=== PATIENT | female | born 1940 | race Asian ===

== ENCOUNTER 2021-12-14 20:15 | Inpatient (IN) | payer MEDICARE ==
[~2021-12-14] VITALS: Ht 144.8 cm; Wt 46.1 kg
[2021-12-14 20:49] LABS: BASOPHILS ABSOLUTE AUTO 0.01 K/mm3 (0.00-0.23); BASOPHILS PERCENT AUTO 0 % (0-2); EOSINOPHILS ABSOLUTE AUTO 0.02 K/mm3 (0.00-0.68); EOSINOPHILS PERCENT AUTO 0 % (0-6); Hematocrit 37.9 % (33.0-51.0); IMMATURE GRAN ABSOLUTE AUTO 0.02 K/mm3 (0.00-0.10); IMMATURE GRAN PERCENT AUTO 0 % (0-1); LYMPHOCYTES ABSOLUTE AUTO 0.39 K/mm3 (0.84-5.20); LYMPHOCYTES PERCENT AUTO 5 % (21-46); MONOCYTES PERCENT AUTO 6 % (4-13); Mean Corpuscular HGB 30.1 pg (26.0-34.0); Mean Corpuscular HGB Conc 34.3 g/dL (31.5-36.5); Mean Corpuscular Volume 88 fL (80-100); Mean Platelet Volume 8.7 fL (9.1-12.4); NEUTROPHILS ABSOLUTE AUTO 7.71 K/mm3 (1.96-9.15); NEUTROPHILS PERCENT AUTO 89 % (41-73); Platelet Count 288 K/mm3 (150-400); RDW Coefficient Variation 11.9 % (11.7-14.2); RDW Standard Deviation 38.4 fL (35.1-46.3); Red Blood Cell Count 4.32 M/mm3 (3.80-5.20); White Blood Cell Count 8.65 K/mm3 (4.00-11.30)
[2021-12-14 21:11] LABS: Albumin/Globulin Ratio 0.7 (0.8-1.8); Bilirubin, Total 1.9 mg/dL (0.1-1.0); Calcium, Blood 8.8 mg/dL (8.5-10.1); Creatinine, Blood 0.95 mg/dL (0.40-1.00); Globulin, Blood 4.1 g/dL (2.2-4.0); Potassium, Blood 3.6 mmol/L (3.5-5.5); Total Protein, Blood 7.1 g/dL (6.4-8.2)
[2021-12-15 00:27] LABS: Source, Urine Voided
[2021-12-15 00:34] LABS: Appearance, Urine Clear (Clear); Blood, Urine 1+ (Neg); Color, Urine Yellow (P-Yellow); Glucose Qualitative, Urine Neg (Neg); Ketones, Urine 4+ (Neg); Leukocyte Esterase, Urine 1+ (Neg); Nitrite, Urine Neg (Neg); Protein, Urine 2+ (Neg); Urobilinogen, Urine 2+ (Normal)
[2021-12-15 00:46] LABS: Bilirubin, Urine 1+ (Neg)
[2021-12-15 00:50] LABS: Bacteria Few /hpf; Red Blood Cells, Urine 0-2 /hpf (0-2); Squamous Epithelial Cells Few /hpf (Few); White Blood Cells, Urine 0-2 /hpf (0-5)
[2021-12-15 05:05] LABS: Hematocrit 41.3 % (33.0-51.0); Hemoglobin 13.8 g/dL (11.5-16.0); Mean Corpuscular HGB 29.9 pg (26.0-34.0); Mean Corpuscular HGB Conc 33.4 g/dL (31.5-36.5); Mean Corpuscular Volume 89 fL (80-100); Mean Platelet Volume 8.7 fL (9.1-12.4); Platelet Count 295 K/mm3 (150-400); RDW Coefficient Variation 11.9 % (11.7-14.2); RDW Standard Deviation 38.6 fL (35.1-46.3); Red Blood Cell Count 4.62 M/mm3 (3.80-5.20); White Blood Cell Count 14.37 K/mm3 (4.00-11.30)
[2021-12-15 05:29] LABS: BAND PERCENT MAN 7 % (0-8); BASOPHILS PERCENT MAN 0 % (0-2); EOSINOPHILS PERCENT MAN 0 % (0-6); LYMPHOCYTES ABSOLUTE MAN 0.28 K/mm3 (0.84-5.20); LYMPHOCYTES PERCENT MAN 2 % (21-46); METAMYELOCYTE ABSOLUTE MAN 0.14 K/mm3 (0.00-0.00); METAMYELOCYTE PERCENT MAN 1 % (0-0); MONOCYTES ABSOLUTE MAN 0.43 K/mm3 (0.16-1.47); MONOCYTES PERCENT MAN 3 % (4-13); SEG NEUTROPHILS PERCENT MAN 87 % (41-73); TOTAL CELLS COUNTED 100
[2021-12-15 05:45] LABS: Albumin/Globulin Ratio 0.7 (0.8-1.8); Bilirubin, Total 2.9 mg/dL (0.1-1.0); Bun/Creatinine Ratio 21.7 (12.0-20.0); Calcium, Blood 8.4 mg/dL (8.5-10.1); Creatinine, Blood 0.83 mg/dL (0.40-1.00); Globulin, Blood 4.1 g/dL (2.2-4.0); Potassium, Blood 3.8 mmol/L (3.5-5.5); Total Protein, Blood 7.1 g/dL (6.4-8.2)
--- NOTE | 2021-12-15 07:38 | NUR ---
PATIENT ARRIVED ON FLOOR DAIRY TESTER A&OX4, LEVEL OF 2/10 ABD PAIN WITH SLIGHT TENDERNESS IN RUQ. MRCP PAPERWORK COMPLETED AND TURNED IN. DENIED NEED FOR ANALGESIA UPON ARRIVAL. PATIENT WAS STEADY ON FEET TO BATHROOM. NANCY SAID SHE DOES NOT LIKE NOT KNOWING WHAT IS GOING ON. PLEASE KEEP HER INFORMED ABOUT TESTS AND RESULTS. SHE SAID SHE HAS FOR THE MOST PART, SHE HAS ALWAYS BEEN HEALTHY.
[2021-12-15 17:38] LABS: Influenza A, PCR NEGATIVE (NEGATIVE); Influenza B, PCR NEGATIVE (NEGATIVE); Resp Syncytial Virus, PCR NEGATIVE (NEGATIVE); SARS-Cov-2 (COVID-19) PCR, MMC NEGATIVE (NEGATIVE)
--- NOTE | 2021-12-15 18:49 | NUR ---
SHIFT SUMMARY PATIENT ORIENTED WHEN AWAKE. NAPPED IN AFTERNOON, WAKES EASILY. SBA UP TO BATHROOM. TOLERATING SIPS OF WATER AND ICE CHIPS. REPORTS OCC RIGHT ABD PAIN. IV FLUID AND ABX RUNNING. IV FENTANYL FOR PAIN. SEE EMAR. NEGATIVE COVID THIS SHIFT. PROCESS OF TRANSFER TO [facility] FOR ERCP IS STARTED. SON VISITED THIS AFTERNOON. WILL REPORT TO HUSKER OPERATOR RN.
--- NOTE | 2021-12-15 20:25 | NUR ---
CALL RECEIVED FROM [facility] THAT THEY HAVE A BED AVAILABLE NOW FOR THIS PATIENT. WILL CALL DR. PENA WHO SPOKE WITH MD AT [facility] AND RECOMMENDED TRANSFER IN TODAYS NOTE TO REQUEST HE PLACE ORDER TO TRANSFER ROSALIE.
--- NOTE | 2021-12-15 21:14 | NUR ---
REPORT CALLED TO STELLA TSAI AT [facility].
--- NOTE | 2021-12-15 23:30 | NUR ---
REPORT GIVEN TO TRANSPORT EMT'S. PATIENT REQUESTED AND WAS GIVEN 0.25 NCG FEBTANYL PER ORDER FOR TRANSPORT TO [facility]
== END 2021-12-15 23:36 | disposition short-term general hospital (02) | DRG 445 ==
LOC: ER 20:15 → MEDS 20:16
PROVIDERS: Emergency Medicine; Internal Medicine Endocrinology, Diabetes & Metabolism; ADMIT Family Medicine
DX: K80.33 Calculus of bile duct with acute cholangitis with obstruction (principal); C34.90 Malignant neoplasm of unspecified part of unspecified bronchus or lung; E80.0 Hereditary erythropoietic porphyria; R78.81 Bacteremia; E87.1 Hypo-osmolality and hyponatremia; R91.8 Other nonspecific abnormal finding of lung field; Z90.710 Acquired absence of both cervix and uterus; Z98.890 Other specified postprocedural states; E78.5 Hyperlipidemia, unspecified; Z20.822 Contact with and (suspected) exposure to COVID-19
CPT/HCPCS: 0241U; 36415; 74177; 74181; 76705; 80053; 81001; 83605; 83690; 84484; 85025; 87040; 87077; 87086; 87186; 93005; 93010; 96374-59; 96375; 96376; 99285-25; G0378; J0696; J2270; J2405; J3010; Q9967